=== PATIENT | male | born 1955 | race Caucasian/White ===

== ENCOUNTER → 2017-02-21 | Outpatient (CLI) | payer OTHER | END | disposition home or self-care (01) | LOC: LAB 10:12 | PROVIDERS: ATTEND Urology | DX: Z12.5 Encounter for screening for malignant neoplasm of prostate (principal); N40.0 Benign prostatic hyperplasia without lower urinary tract symptoms | CPT/HCPCS: 36415; G0103 ==

== ENCOUNTER → 2017-02-23 | Outpatient (CLI) | payer OTHER ==
[2017-02-23 10:38] LABS: ALBUMIN 3.8 g/dL (3.4-5.0); CHOLESTEROL/HDL RATIO 4.4; DIRECT BILIRUBIN 0.1 mg/dL (0.0-0.2); TOTAL BILIRUBIN 0.6 mg/dL (0.2-1.0); TOTAL PROTEIN 7.4 g/dL (6.4-8.2)
== END | disposition home or self-care (01) ==
LOC: LAB 09:57
PROVIDERS: ATTEND Internal Medicine Cardiovascular Disease
DX: I25.10 Atherosclerotic heart disease of native coronary artery without angina pectoris (principal)
CPT/HCPCS: 36415; 80061; 80076

== ENCOUNTER → 2018-12-10 | Outpatient (CLI) | payer OTHER ==
[~2018-12-10] MED LIST: ASPI325T8 PO; ATOR40TA59 PO; METF10007 PO; METO25TA4 PO
--- NOTE | 2018-12-10 09:58 | CARD ---
MR#: [id number] Date of Study: 12/10/2018 Ordering Physician: ANDREWS AUSTIN, Referring Physician: ANDREWS AUSTIN, Tech: Yamilet Hopkins APPROVED REPORT EXAM: Two-dimensional and M-mode echocardiogram with Doppler and color Doppler. Other Information Quality : AverageHR: 65bpm Technically limited study due to COPD INDICATION HX CABG RISK FACTORS Diabetes 2D DIMENSIONS RVDd3.1 (2.9-3.5cm)Left Atrium(2D)4.3 (1.6-4.0cm) IVSd1.4 (0.7-1.1cm)Aortic Root(2D)3.5 (2.0-3.7cm) LVDd5.2 (3.9-5.9cm)LVOT Diameter2.1 (1.8-2.4cm) PWd1.2 (0.7-1.1cm)LVDs3.2 (2.5-4.0cm) FS (%) 39.4 %SV91.5 ml LVEF(%)69.5 (>50%) Aortic Valve AoV Peak Ron.105.5cm/sAoV VTI21.0cm AO Peak GR.4.5mmHgLVOT Peak Ron.98.0cm/s LVOT VTI 22.76cmAO Mean GR.2mmHg PARVEEN (VMAX)2.50kk1HKV (VTI)3.64cm2 Mitral Valve MV E Nowleeiz48.0cm/sMV DECEL GSYG043cc MV A Qghlsovx81.5cm/sMV MEA86hr E/A Ratio1.2MVA (PHT)4.05cm2 TDI E/Lateral E'6.0E/Medial E'6.6 Pulmonary Valve PV Peak Zbusqofn26.1cm/sPV Peak Grad.3mmHg Tricuspid Valve TR P. Jmwwcugd699wd/sRAP XKRJMUFG0wqPx TR Peak Gr.80ljVpVSAH79vqFr Pulmonary Vein S1 Uqvdfdtu51.5cm/sD2 Hivxefyc54.9cm/s PVa krlezvia808vsak LEFT VENTRICLE The left ventricle is normal size. There is mild to moderate concentric left ventricular hypertrophy. The left ventricular systolic function is normal. The Ejection Fraction is 55-60%. There is normal L V segmental wall motion. The left ventricular diastolic function and filling is normal for age. RIGHT VENTRICLE The right ventricle is normal size. There is normal right ventricular wall thickness. The right ventr icular systolic function is normal. ATRIA The left atrium is borderline dilated. The right atrium is borderline dilated. The interatrial septum is intact with no evidence for an atrial septal defect or patent foramen ovale as noted on 2-D or Do ppler imaging. AORTIC VALVE The aortic valve is normal in structure and function. Doppler and Color Flow revealed no significant aortic regurgitation. There is no significant aortic valvular stenosis. MITRAL VALVE The mitral valve is normal in structure and function. There is no evidence of mitral valve prolapse. There is no mitral valve stenosis. Doppler and Color Flow revealed no mitral valve regurgitation note d. TRICUSPID VALVE The tricuspid valve is normal in structure and function. Doppler and Color Flow revealed trace tricus pid regurgitation with an estimated PAP of 28 mmHg. There is no tricuspid valve stenosis. PULMONIC VALVE The pulmonic valve is not well visualized. Doppler and Color Flow revealed no pulmonic valvular regur gitation. GREAT VESSELS The aortic root is normal in size. The IVC is normal in size and collapses >50% with inspiration. PERICARDIAL EFFUSION There is no evidence of significant pericardial effusion. Critical Notification Critical Value: No <Conclusion> The left ventricular systolic function is normal. The Ejection Fraction is 55-60%. There is normal LV segmental wall motion. Trace tricuspid regurgitation with an estimated PAP of 28 mmHg. There is no evidence of significant pericardial effusion. Signed by : Richard Feng, Electronically Approved : 12/10/2018 09:57:57
== END | disposition home or self-care (01) ==
LOC: ECHO 07:59
PROVIDERS: ATTEND Internal Medicine Cardiovascular Disease
DX: I51.7 Cardiomegaly (principal); I25.10 Atherosclerotic heart disease of native coronary artery without angina pectoris; J44.9 Chronic obstructive pulmonary disease, unspecified; E11.9 Type 2 diabetes mellitus without complications; Z95.1 Presence of aortocoronary bypass graft
CPT/HCPCS: 93306

== ENCOUNTER → 2018-12-13 | Day surgery (SDC) | payer OTHER ==
[~2018-12-13] MED LIST changes: +HYDROmorphone 2 MG/ML VIAL IV PRN; +IV RINGERS,LACTATED 1000ML 1,000 ML IV SCH; +LIDOCAINE 1% PF 2 ML VIAL. ID PRN; +LIDOCAINE 2% PF 5 ML VIAL. ONE; +MORPHINE SULFATE 2 MG/ML VIAL. IV PRN; +ONDANSETRON PF 4 MG/2 ML VIAL. IV PRN; +PROCHLORPERAZINE 10 MG/2 ML VIAL. IV PRN; +PROPOFOL 40 ML IV ONE; +fentaNYL PF VIAL 100 MCG/2 ML VIAL IV PRN
--- NOTE | 2018-12-13 11:17 | PREOP HP ---
DATE OF SERVICE: 12/13/2018 REQUESTING PHYSICIAN: Dr. Grace, [place]. REASON FOR PROCEDURE: Colorectal cancer screening. HISTORY OF PRESENT ILLNESS: This is a 63-year-old gentleman who presents today for colorectal cancer screening. He admits to daily bowel movement and denies any family history of colon cancer. He was adopted. He did have a colonoscopy in 2007 in [place]. ALLERGIES: No known drug allergies. MEDICATIONS: 1. Metformin. 2. Atorvastatin. 3. Metoprolol. 4. Aspirin. PAST MEDICAL HISTORY: Significant for a CABG. SOCIAL HISTORY: He admits to drinking alcohol. He denies tobacco or IV drug abuse. REVIEW OF SYSTEMS: A 13-point review of systems was done and is significant for CPAP usage and joint pains, was otherwise negative. PHYSICAL EXAMINATION: VITAL SIGNS: He is afebrile and his vital signs are stable. GENERAL: He is a well-developed, well-nourished male, in no apparent distress. HEENT: His oropharynx is clear. CARDIOVASCULAR: S1, S2. LUNGS: Clear. ABDOMEN: Normoactive bowel sounds. Soft, nontender and nondistended. EXTREMITIES: No edema. NEUROLOGIC: Awake, alert and oriented x 3. ASSESSMENT AND PLAN: Colorectal cancer screening. The risks and benefits of the procedure, including bleeding, perforation, non-diagnosis and sedation were explained and he has agreed to proceed. Thank you for allowing me to participate in the care of this patient. CONNOR VELIZ MD DR: PRICILA/jimbo JOB#: [id number] / [id number] Dr. Wilton Gasca
[2018-12-13 11:57] VITALS: BP 117/78
--- NOTE | 2018-12-14 15:05 | PATHOLOGY ---
[facility] Accession Number: [id number] . 01 Material submitted: . PART A: colon - APPENDICEAL ORIFICE POLYP PART B: colon - SIGMOID POLYPS. Modifiers: sigmoid . 01 Clinical history: . Pre-OP DX: Screening Post-OP DX: Polyps . 02 Diagnosis: A. Colon biopsies, appendiceal orifice polyp: - Sessile serrated polyp/adenoma. . B. Colon biopsies, sigmoid colon polyps: - Hyperplastic polyps. (JPM:[facility] 12/14/2018) [facility]/12/14/2018 . 02 Comment: There is no high-grade dysplasia or evidence of malignancy. (JPM:[facility] 12/14/2018) . 02 Electronically signed: . Len Conrad MD, Pathologist NPI- [id number] . 01 Gross description: . A. Received in formalin labeled "Morales Chu, appendiceal orifice polyp," are 4 segments of kwong soft tissue measuring 0.9 x 0.6 x 0.1 cm in aggregate dimensions and ranging from 0.1 to 0.2 cm in maximum dimension. The specimen is submitted entirely in cassette A1. . B. Received in formalin labeled "Morales Chu, sigmoid polyps," are 6 segments of kwong soft tissue measuring 1.1 x 0.7 x 0.1 cm in aggregate dimensions and ranging from 0.2 to 0.3 cm in maximum dimension. The specimen is submitted entirely in cassette B1. ([facility]; 12/13/2018) TOB/TOB . 02 Pathologist provided ICD-10: D12.1, K63.5 . 02 CPT . 727186, 700321 Specimen Comment: A courtesy copy of this report has been sent to Specimen Comment: [phone], . Specimen Comment: Report sent to / DR BUNCH Performed at: 01 [facility] [address], [place] [id number] MD Christophe Epps MD Phone: [phone] Performed at: 02 [facility] [address] [place], [place] [id number] MD Len Conrad MD Phone: [phone]
== END | disposition home or self-care (01) ==
LOC: SURG 09:44
PROVIDERS: ATTEND Internal Medicine Gastroenterology
DX: Z12.11 Encounter for screening for malignant neoplasm of colon (principal); D12.1 Benign neoplasm of appendix; K63.5 Polyp of colon; K64.0 First degree hemorrhoids; Z80.0 Family history of malignant neoplasm of digestive organs; Z79.84 Long term (current) use of oral hypoglycemic drugs; Z79.899 Other long term (current) drug therapy; Z79.82 Long term (current) use of aspirin; Z95.1 Presence of aortocoronary bypass graft
CPT/HCPCS: 45380; 88305; J2001; J2704